=== PATIENT | male | born 1995 | race American Indian/Alaskan Native ===

== ENCOUNTER 2020-11-07 14:39 | Inpatient (IN) | payer BC, MEDICAID ==
[~2020-11-07] VITALS: Ht 180.3 cm; Wt 146.4 kg
[2020-11-07 15:58] LABS: BASOPHILS # (AUTO) 0.1 X10'3 (0-0.2); BASOPHILS % (AUTO) 1.2 % (0-1); EOSINOPHILS # (AUTO) 0.1 X10'3 (0-0.9); EOSINOPHILS % (AUTO) 0.8 % (0-6); HEMOGLOBIN 16.5 g/dl (14.0-17.9); LYMPHOCYTES # (AUTO) 2.7 X10'3 (1.1-4.8); LYMPHOCYTES % (AUTO) 27.8 % (21-51); MEAN CORPUSCULAR HEMOGLOBIN 31.8 PG (27.0-31.0); MEAN CORPUSCULAR HGB CONC 35.1 g/dL (33.0-36.5); MEAN CORPUSCULAR VOLUME 90.4 FL (78-98); MEAN PLATELET VOLUME 9.6 FL (7.4-10.4); MONOCYTES # (AUTO) 0.5 X10'3 (0-0.9); MONOCYTES % (AUTO) 4.7 % (2-12); NEUTROPHILS # (AUTO) 6.3 X10'3 (1.8-7.7); NEUTROPHILS % (AUTO) 65.5 % (42-75); PLATELET COUNT 239 X10'3 (140-440); RED CELL DISTRIBUTION WIDTH 13.4 % (11.5-14.5); WHITE BLOOD COUNT 9.6 X10'3 (4.5-11.0)
[2020-11-07] MEDS ORDERED: normal saline 1000ml 1,000 ML IV ONE ×2 (16:10→16:25)
[2020-11-07 16:22] LABS: ALBUMIN 4.5 G/DL (3.4-5.0); ALKALINE PHOSPHATASE 234 IU/L (46-116); ANION GAP 19 (8-16); BILIRUBIN,TOTAL 1.7 MG/DL (0.1-1.0); BLOOD UREA NITROGEN 15 MG/DL (7-18); BUN/CREATININE RATIO 10.3 (5.4-32.0); CALCIUM 9.4 MG/DL (8.5-10.1); CHLORIDE 92 MMOL/L (99-107); CREATININE 1.45 MG/DL (0.60-1.10); LIPASE 153 U/L (73-393); SODIUM 134 MMOL/L (135-145); TOTAL PROTEIN 9.1 G/DL (6.4-8.2); eGFR 60 ML/MIN
[2020-11-07 16:29] LABS: HEMOGLOBIN A1C > 14.0 % (4.5-6.2)
[2020-11-07 16:33] LABS: POTASSIUM 3.9 MMOL/L (3.5-5.1)
[2020-11-07 16:38] LABS: ALANINE AMINOTRANSFERASE 198 U/L (12-78); ASPARTATE AMINO TRANSFERASE 91 U/L (10-37)
[2020-11-07 16:42] LABS: GLUCOSE 487 MG/DL (70-104)
--- NOTE | 2020-11-07 17:36 | NUR ---
RT HAS DRAWN BLOOD GAS
[2020-11-07 17:37] LABS: CLARITY,URINE SLIGHTLY CLOUDY (Clear); COLOR,URINE YELLOW (Yellow); GLUCOSE, URINE >=1000 mg/dl (Neg); KETONES,URINE >=80 mg/dl (Neg); LEUKOCYTE ESTERASE ,URINE NEGATIVE (Neg); NITRITES, URINE NEGATIVE (Neg); OCCULT BLOOD,URINE LARGE (Neg); PH,URINE 5.5 (4.8-8.0); PROTEIN,URINE >=300 mg/dl (Neg); UROBILINOGEN,URINE 0.2 E.U/dL (0.2-1.0)
[2020-11-07 17:40] LABS: UA COLLECTION TYPE CLN CATCH MIDSTREAM
[2020-11-07 17:41] LABS: ABG HCO3 18.8 mmol/L (22.0-26.0); ABG PO2 (T) 72.3 mmHg (75.0-100.0); ALLEN'S TEST POSITIVE; FCOHb 0.9 % (0.0-3.9); FO2Hb 94.1 % (94-97); TOTAL HEMOGLOBIN 16.1 G/dl (14.0-18.0)
[2020-11-07] MEDS ORDERED: insulin regular, human 10 units/0.1 ml syringe SQ ONE (17:45)
[2020-11-07] MEDS ORDERED: CHOL20003 PO (17:51)
[2020-11-07] MEDS ORDERED: LEVO100T9 PO (17:54)
[2020-11-07 17:58] LABS: BACTERIA,URINE FEW /HPF (Neg); RBC,URINE 0-2 /HPF (0-2); SQUAMOUS EPITHELIAL CELL,UR FEW /LPF (FEW); WBC,URINE 0-4 /HPF (0-4)
[2020-11-07 18:03] LABS: YEAST FEW /HPF (NEGATIVE)
[2020-11-07] MEDS ORDERED: metoclopramide 5 mg/ml inj IV PRN (18:15)
[2020-11-07] MEDS ORDERED: magnesium Cl slow-release 64mg tablet PO PRN (18:15)
[2020-11-07] MEDS ORDERED: bisacodyl 10mg suppository rectal RC PRN (18:15)
[2020-11-07] MEDS ORDERED: morphine 2 MG/ML inj. syringe IV PRN ×2 (18:15)
[2020-11-07] MEDS ORDERED: sodium phosphate inj. 15 MMOL in dextrose 5%-water 250 ML IV PRN (18:15)
[2020-11-07] MEDS ORDERED: mag hydrox/Alum hydrox/simeth 30ml oral suspension PO PRN (18:15)
[2020-11-07] MEDS ORDERED: sodium phosphate inj. 30 MMOL in dextrose 5%-water 250 ML IV PRN (18:15)
[2020-11-07] MEDS ORDERED: magnesium 4gm in 100ml NS 100 ML IV PRN (18:15)
[2020-11-07] MEDS ORDERED: potassium Cl 20 mEq SR tablet PO PRN ×3 (18:15)
[2020-11-07] MEDS ORDERED: acetaminophen 650mg rectal suppository RC PRN (18:15)
[2020-11-07] MEDS ORDERED: Neutra Phos packet PO PRN (18:15)
[2020-11-07] MEDS ORDERED: potassium Cl 40MEQ/1/2NS 520ml 520 ML IV PRN ×4 (18:15)
[2020-11-07] MEDS ORDERED: HYDROcodone/acetaminophen 5mg/325mg tablet PO PRN (18:15)
[2020-11-07] MEDS ORDERED: magnesium 2GM in 50ml NS 50 ML IV PRN (18:15)
[2020-11-07] MEDS ORDERED: magnesium hydroxide 30ml (MOM) UD suspension PO PRN (18:15)
[2020-11-07] MEDS ORDERED: insulin regular, human U-100 3ml vial - multi-dose IV PRN (18:15)
[2020-11-07] MEDS ORDERED: sodium bicarbonate (8.4%) inj. 50 MEQ in dextrose 5% water 500ml 250 ML IV PRN (18:15)
[2020-11-07] MEDS ORDERED: HYDROcodone/acetaminophen 10/325mg tab PO PRN (18:15)
[2020-11-07] MEDS ORDERED: acetaminophen 325mg tablet PO PRN ×2 (18:15)
[2020-11-07] MEDS ORDERED: ondansetron/PF 4mg/2ml inj IV PRN (18:15)
[2020-11-07] MEDS ORDERED: sodium bicarbonate (8.4%) inj. 100 MEQ in dextrose 5% water 500ml 500 ML IV PRN (18:15)
[2020-11-07] MEDS ORDERED: diphenhydrAMINE 25mg capsule PO PRN (18:15)
[2020-11-07] MEDS ORDERED: CefTRIAXone 1000mg IM Kit (w/lidocaine diluent) IM STA (18:36)
[2020-11-07] MEDS ORDERED: azithromycin 250mg tablet PO ONE (18:40)
[2020-11-07] MEDS: Insulin Reg/NS 100units/100mL 100 ML IV SCH (19:12)
[2020-11-07] MEDS: normal saline 1000ml 1,000 ML IV SCH ×4 (19:15→23:03)
[2020-11-07 19:31] LABS: URINE AMPHETAMINE SCREEN NEGATIVE (Neg); URINE BARBITUATE SCREEN NEGATIVE (Neg); URINE BENZODIAZEPINES SCREEN NEGATIVE (Neg); URINE CANNABINOID SCREEN NEGATIVE (Neg); URINE COCAINE SCREEN NEGATIVE (Neg); URINE METHADONE SCREEN NEGATIVE (Neg); URINE OPIATE SCREEN NEGATIVE (Neg); URINE PHENCYCLIDINE SCREEN NEGATIVE (Neg)
[2020-11-07 19:31] LABS: ALBUMIN 4.2 G/DL (3.4-5.0); ANION GAP 20 (8-16); BLOOD UREA NITROGEN 16 MG/DL (7-18); BUN/CREATININE RATIO 11.7 (5.4-32.0); CALCIUM 9.1 MG/DL (8.5-10.1); CHLORIDE 97 MMOL/L (99-107); CREATININE 1.37 MG/DL (0.60-1.10); GLUCOSE 428 MG/DL (70-104); PHOSPHORUS 3.1 MG/DL (2.3-4.5); SODIUM 139 MMOL/L (135-145); TOTAL CARBON DIOXIDE 21.7 MMOL/L (24-32); eGFR 64 ML/MIN
[2020-11-07] MEDS: K and/or MAG REPLACEMENT MC SCH ×2 (20:00)
[2020-11-07 20:02] LABS: POTASSIUM 3.8 MMOL/L (3.5-5.1)
[2020-11-07] MEDS: heparin, porcine 5000 units/ml vial SQ SCH (20:36)
[2020-11-07] MEDS ORDERED: piperacillin/tazo 3.375gm/50ml 50 ML IV SCH (21:00)
[2020-11-07] MEDS ORDERED: levoTHYROXINE sod inj. 100mcg/5 ml vial IV ONE (21:05)
[2020-11-07 21:15] VITALS: BP 118/74
--- NOTE | 2020-11-07 22:17 | NUR ---
Patient in room PCU 3017. I have received report from Kristal RECINOS in ER and had the opportunity to ask questions and assume patient care.
[2020-11-07 22:26] LABS: ALBUMIN 4.1 G/DL (3.4-5.0); ANION GAP 16 (8-16); BLOOD UREA NITROGEN 15 MG/DL (7-18); BUN/CREATININE RATIO 10.6 (5.4-32.0); CALCIUM 8.8 MG/DL (8.5-10.1); CHLORIDE 100 MMOL/L (99-107); CREATININE 1.41 MG/DL (0.60-1.10); GLUCOSE 328 MG/DL (70-104); PHOSPHORUS 2.1 MG/DL (2.3-4.5); POTASSIUM 3.2 MMOL/L (3.5-5.1); SODIUM 140 MMOL/L (135-145); TOTAL CARBON DIOXIDE 24.1 MMOL/L (24-32); eGFR 62 ML/MIN
[2020-11-07] MEDS: piperacillin/tazo 3.375gm/50ml 50 ML IV SCH (23:03)
--- NOTE | 2020-11-07 23:31 | NUR ---
Patient came to floor at 2114. Patient stable. No distress noted. Patient on insulin drip from ER running at 10ml/hr and NS at 250 ml/hr.
[2020-11-08] MEDS: potassium Cl 20 mEq SR tablet PO PRN ×2 (00:24→08:02)
[2020-11-08] MEDS: potassium CL 20mEq in D5-1/2NS 1,000 ML IV PRN ×2 (01:25→08:03)
[2020-11-08] MEDS: normal saline 1000ml 1,000 ML IV SCH ×5 (01:36→19:41)
[2020-11-08 02:00] VITALS: BP 103/56
[2020-11-08] MEDS: Insulin Reg/NS 100units/100mL 100 ML IV SCH (02:08)
[2020-11-08 02:49] LABS: BASOPHILS # (AUTO) 0.1 X10'3 (0-0.2); EOSINOPHILS # (AUTO) 0.1 X10'3 (0-0.9); EOSINOPHILS % (AUTO) 1.2 % (0-6); HEMATOCRIT 40.2 % (42.0-52.0); HEMOGLOBIN 14.3 g/dl (14.0-17.9); LYMPHOCYTES # (AUTO) 2.9 X10'3 (1.1-4.8); LYMPHOCYTES % (AUTO) 34.1 % (21-51); MEAN CORPUSCULAR HEMOGLOBIN 31.6 PG (27.0-31.0); MEAN CORPUSCULAR HGB CONC 35.6 g/dL (33.0-36.5); MEAN CORPUSCULAR VOLUME 88.8 FL (78-98); MONOCYTES # (AUTO) 0.5 X10'3 (0-0.9); MONOCYTES % (AUTO) 5.3 % (2-12); NEUTROPHILS % (AUTO) 58.4 % (42-75); PLATELET COUNT 185 X10'3 (140-440); RED BLOOD COUNT 4.52 X10'6 (4.70-6.10); RED CELL DISTRIBUTION WIDTH 13.3 % (11.5-14.5); WHITE BLOOD COUNT 8.5 X10'3 (4.5-11.0)
[2020-11-08 03:11] LABS: ALANINE AMINOTRANSFERASE 162 U/L (12-78); ALBUMIN 3.8 G/DL (3.4-5.0); ALKALINE PHOSPHATASE 150 IU/L (46-116); ANION GAP 12 (8-16); ASPARTATE AMINO TRANSFERASE 74 U/L (10-37); BILIRUBIN,TOTAL 1.3 MG/DL (0.1-1.0); BLOOD UREA NITROGEN 15 MG/DL (7-18); BUN/CREATININE RATIO 12.4 (5.4-32.0); CALCIUM 8.3 MG/DL (8.5-10.1); CHLORIDE 105 MMOL/L (99-107); CHOL/HDL RATIO 6.8 (0.00-4.99); CHOLESTEROL 218 MG/DL (0-200); CREATININE 1.21 MG/DL (0.60-1.10); GLUCOSE 206 MG/DL (70-104); HDL CHOLESTEROL 32 MG/DL (35-60); LDL CHOLESTEROL 90 MG/DL (50-100); MAGNESIUM 1.8 MG/DL (1.5-2.4); PHOSPHORUS 2.2 MG/DL (2.3-4.5); SODIUM 142 MMOL/L (135-145); TOTAL CARBON DIOXIDE 25.4 MMOL/L (24-32); TOTAL PROTEIN 7.6 G/DL (6.4-8.2); TRIGLYCERIDES 514 MG/DL (20-135); eGFR 74 ML/MIN
[2020-11-08 03:20] LABS: POTASSIUM 2.9 MMOL/L (3.5-5.1)
--- NOTE | 2020-11-08 03:22 | NUR ---
Notified Dr. Olson of patients current blood glucose of 206 and insulin drip at 10ml/hr, ordered to decrease to 8ml/hr.
--- NOTE | 2020-11-08 03:27 | NUR ---
PAGER ID: [phone] MESSAGE: [id number] Sekou Hitchcock. Patients potassium is 2.9. He is currently on insulin drip at 8ml/hr and d51/2 NS with 20 mEq of K. His last sugar was 206 at 0300. Do you want me giving him any PO potassium or lowering insulin drip? Thanks [phone] Addendum: 11/08/20 at 0329 by Juan Carlos Tinsley RN Ordered to give 40 of k PO
[2020-11-08 03:33] LABS: HIV ANTIBODY 1&2 RAPID NON-REACTIVE (Neg)
[2020-11-08 06:00] VITALS: BP 122/71
--- NOTE | 2020-11-08 06:09 | NUR ---
Problems reprioritized. Patient report given, questions answered & plan of care reviewed with Lydia.
--- NOTE | 2020-11-08 06:16 | NUR ---
Patient in room PCU 3017. I have received report from GRISEL Rangel and had the opportunity to ask questions and assume patient care.
[2020-11-08] MEDS: heparin, porcine 5000 units/ml vial SQ SCH ×2 (07:04→19:36)
[2020-11-08] MEDS: levoTHYROXINE 100mcg tablet PO SCH (07:04)
[2020-11-08] MEDS: piperacillin/tazo 3.375gm/50ml 50 ML IV SCH ×2 (07:04→16:19)
[2020-11-08] MEDS: mupirocin 2% ointment 22GM TP SCH ×2 (07:05→19:40)
[2020-11-08] MEDS: clotrimazole topical cream 15gm tube TP SCH ×2 (07:05→19:40)
[2020-11-08] MEDS: K and/or MAG REPLACEMENT MC SCH ×4 (08:08→19:39)
--- NOTE | 2020-11-08 08:26 | NUR ---
notified. PAGER ID: [phone] MESSAGE: Re: Sekou Hitchcock. [id number]. Anion gap closed, 12 Meq/L. Co2 25. Last BG 210. Replacing K PO/IV (2.9). Insulin gtt @ 8U. Pt is hungry. Do you want a Long acting given soon and to order a lunch tray? Next bmp at 0900. thanks. Zoraida. [id number].
[2020-11-08 10:18] LABS: ALANINE AMINOTRANSFERASE 143 U/L (12-78); ALBUMIN 3.5 G/DL (3.4-5.0); ALBUMIN/GLOBULIN RATIO 0.9 (1.1-1.5); ALKALINE PHOSPHATASE 133 IU/L (46-116); ANION GAP 13 (8-16); ASPARTATE AMINO TRANSFERASE 77 U/L (10-37); BILIRUBIN,TOTAL 1.2 MG/DL (0.1-1.0); BLOOD UREA NITROGEN 13 MG/DL (7-18); BUN/CREATININE RATIO 10.8 (5.4-32.0); CALCIUM 7.9 MG/DL (8.5-10.1); CHLORIDE 104 MMOL/L (99-107); GLUCOSE 168 MG/DL (70-104); POTASSIUM 3.2 MMOL/L (3.5-5.1); SODIUM 141 MMOL/L (135-145); TOTAL CARBON DIOXIDE 24.5 MMOL/L (24-32); TOTAL PROTEIN 7.4 G/DL (6.4-8.2); eGFR 74 ML/MIN
[2020-11-08] MEDS ORDERED: dextrose 50%-water 50ml dispensing syringe IV PRN ×2 (10:55)
[2020-11-08] MEDS ORDERED: dextrose ORAL solution 15 GM/59 ML bottle PO PRN ×2 (10:55)
[2020-11-08] MEDS ORDERED: MESSAGE TO PHARMACY PO ONE (10:55)
[2020-11-08] MEDS ORDERED: glucagon, human recombinant 1mg kit SUBCUT PRN (10:55)
[2020-11-08 11:00] VITALS: BP 136/77
[2020-11-08] MEDS: insulin Lispro (HumaLOG) vial - multi-dose SQ SCH ×3 (13:04→21:58)
[2020-11-08 14:45] LABS: ALANINE AMINOTRANSFERASE 140 U/L (12-78); ALBUMIN 3.5 G/DL (3.4-5.0); ALBUMIN/GLOBULIN RATIO 0.9 (1.1-1.5); ALKALINE PHOSPHATASE 130 IU/L (46-116); ANION GAP 10 (8-16); ASPARTATE AMINO TRANSFERASE 73 U/L (10-37); BILIRUBIN,TOTAL 1.4 MG/DL (0.1-1.0); BLOOD UREA NITROGEN 15 MG/DL (7-18); BUN/CREATININE RATIO 9.6 (5.4-32.0); CHLORIDE 105 MMOL/L (99-107); CREATININE 1.56 MG/DL (0.60-1.10); GLUCOSE 320 MG/DL (70-104); POTASSIUM 3.7 MMOL/L (3.5-5.1); SODIUM 140 MMOL/L (135-145); TOTAL CARBON DIOXIDE 25.3 MMOL/L (24-32); TOTAL PROTEIN 7.2 G/DL (6.4-8.2); eGFR 55 ML/MIN
[2020-11-08 14:53] LABS: CALCIUM 7.8 MG/DL (8.5-10.1)
[2020-11-08 15:00] VITALS: BP 128/63
[2020-11-08] MEDS ORDERED: cholecalciferol (vitamin D3) 1,000 unit (25mcg) tablet PO SCH (17:00)
[2020-11-08 18:00] VITALS: BP 111/68
--- NOTE | 2020-11-08 18:26 | NUR ---
DM consult: Pt admit with new onset diabetes with an A1c of greater than 14% with DKA. Attempted visit with pt at bedside however pt sleeping and did not wake with verbal cues. Written DM education with RD contact information left at patient's bedside. Will attempt verbal education at another time. Noted that pt with elevated lipid panel with TG 514 mg/dL and CHOL 218 mg/dL, pt would benefit from heart healthy nutrition therapy education. Pt on a CHO controlled diet documented with 100% PO intake first meal. [facility] 11/07. Will continue to follow closely. Recommendations: 1) Continue CHO controlled diet; consider addition of heart healthy diet given TG 514 mg/dL and CHOL 218 mg/dL 2) Monitor need for additional protein for satiety 3) Bowel care per rx 4) Scaled weights per rx 5) DM and heart healthy educations; A1c greater than 14.0%, TG 514 mg/dL and CHOL 218 mg/dL Addendum: 11/08/20 at [address] Amended: Links added.
--- NOTE | 2020-11-08 18:30 | NUR ---
Problems reprioritized. Patient report given, questions answered & plan of care reviewed with GRISEL Portillo.
--- NOTE | 2020-11-08 18:30 | NUR ---
Student documentation: I have reviewed and agree with all interventions, assessments performed and documented by GRISEL Jerome. Preceptee medication Administration: For this medication-pass time frame, all medication were reviewed, dispensed, administered and documented per hospital policy by GRISEL Jerome.
[2020-11-08] MEDS: lactobacillus rhamnosus 10,000 MMU CELLS/CAPSULE PO SCH (19:35)
[2020-11-08] MEDS ORDERED: insulin glargine (Lantus) pen - multi-dose SQ SCH (21:00)
[2020-11-08 22:00] VITALS: BP 106/61
[2020-11-09] MEDS: piperacillin/tazo 3.375gm/50ml 50 ML IV SCH ×2 (00:40→08:14)
[2020-11-09 02:00] VITALS: BP 121/65
[2020-11-09] MEDS: normal saline 1000ml 1,000 ML IV SCH (05:38)
[2020-11-09 06:00] VITALS: BP 114/63
--- NOTE | 2020-11-09 06:17 | NUR ---
Problems reprioritized. Patient report given, questions answered & plan of care reviewed with Zoraida RECINOS.
--- NOTE | 2020-11-09 06:25 | NUR ---
Patient in room PCU 3017. I have received report from GRISEL Rangel and had the opportunity to ask questions and assume patient care.
[2020-11-09 07:29] LABS: BASOPHILS # (AUTO) 0.1 X10'3 (0-0.2); BASOPHILS % (AUTO) 0.9 % (0-1); EOSINOPHILS # (AUTO) 0.1 X10'3 (0-0.9); EOSINOPHILS % (AUTO) 1.9 % (0-6); HEMATOCRIT 40.8 % (42.0-52.0); HEMOGLOBIN 14.2 g/dl (14.0-17.9); LYMPHOCYTES # (AUTO) 2.5 X10'3 (1.1-4.8); LYMPHOCYTES % (AUTO) 37.4 % (21-51); MEAN CORPUSCULAR HEMOGLOBIN 31.6 PG (27.0-31.0); MEAN CORPUSCULAR HGB CONC 34.8 g/dL (33.0-36.5); MEAN CORPUSCULAR VOLUME 90.8 FL (78-98); MEAN PLATELET VOLUME 9.1 FL (7.4-10.4); MONOCYTES # (AUTO) 0.4 X10'3 (0-0.9); MONOCYTES % (AUTO) 5.8 % (2-12); NEUTROPHILS # (AUTO) 3.6 X10'3 (1.8-7.7); PLATELET COUNT 166 X10'3 (140-440); RED BLOOD COUNT 4.49 X10'6 (4.70-6.10); RED CELL DISTRIBUTION WIDTH 14.1 % (11.5-14.5); WHITE BLOOD COUNT 6.8 X10'3 (4.5-11.0)
[2020-11-09] MEDS: K and/or MAG REPLACEMENT MC SCH ×2 (08:00→09:00)
[2020-11-09] MEDS: lactobacillus rhamnosus 10,000 MMU CELLS/CAPSULE PO SCH (08:14)
[2020-11-09] MEDS: levoTHYROXINE 100mcg tablet PO SCH (08:14)
[2020-11-09] MEDS: heparin, porcine 5000 units/ml vial SQ SCH (08:15)
[2020-11-09] MEDS: clotrimazole topical cream 15gm tube TP SCH (08:15)
[2020-11-09] MEDS: mupirocin 2% ointment 22GM TP SCH (08:15)
[2020-11-09 08:18] LABS: ALANINE AMINOTRANSFERASE 125 U/L (12-78); ALBUMIN 3.3 G/DL (3.4-5.0); ALBUMIN/GLOBULIN RATIO 0.9 (1.1-1.5); ALKALINE PHOSPHATASE 119 IU/L (46-116); ANION GAP 11 (8-16); ASPARTATE AMINO TRANSFERASE 62 U/L (10-37); BILIRUBIN,TOTAL 1.3 MG/DL (0.1-1.0); BLOOD UREA NITROGEN 13 MG/DL (7-18); BUN/CREATININE RATIO 9.8 (5.4-32.0); CHLORIDE 104 MMOL/L (99-107); CREATININE 1.33 MG/DL (0.60-1.10); GLUCOSE 348 MG/DL (70-104); PHOSPHORUS 2.8 MG/DL (2.3-4.5); POTASSIUM 3.9 MMOL/L (3.5-5.1); SODIUM 140 MMOL/L (135-145); TOTAL CARBON DIOXIDE 24.6 MMOL/L (24-32); eGFR 66 ML/MIN
[2020-11-09] MEDS: insulin Lispro (HumaLOG) vial - multi-dose SQ SCH ×2 (09:09→13:49)
[2020-11-09 11:00] VITALS: BP_SYST 113; BP_SYST 136; BP_DIAS 75; BP_DIAS 77
[2020-11-09 11:14] LABS: HBSAG SCREEN Negative (Negative); HEP A AB, IGM Negative (Negative); HEPATITIS C ANTIBODY <0.1 s/co ratio (0.0-0.9)
[2020-11-09] MEDS ORDERED: CLOT15CR35 TP (11:40)
[2020-11-09] MEDS ORDERED: METF-950 PO (11:40)
[2020-11-09] MEDS ORDERED: LANTUS SQ (11:40)
[2020-11-09] MEDS ORDERED: INSU100V11 SQ (11:40)
[2020-11-09] MEDS ORDERED: ASPI-611 PO (11:40)
[2020-11-09] MEDS ORDERED: MUPI22OI30 TP (11:40)
[2020-11-09] MEDS ORDERED: LACT1CAP26 PO (11:40)
[2020-11-09] MEDS ORDERED: LISI-790 PO (11:40)
[2020-11-09] MEDS ORDERED: AMOX-419 PO (11:40)
--- NOTE | 2020-11-09 14:05 | NUR ---
geographic information systems manager paged about patient's discharge, including supplies. Awaiting response.
--- NOTE | 2020-11-09 15:08 | NUR ---
F/u for DM consult: Pt seen at bedside with grandmother present provided with extensive verbal DM education and heart healthy nutrition therapy education. Pt and grandmother very interactive with education. Pt reports multiple family members with diabetes and reports great grandmother is a personal development educator. Noted that pt goes to [facility], pt encouraged to inquire about seeing CDEs at [facility] as well as to f/u with PCP and inquire about referral for healthcare interpreter. All questions were answered at this time. RD contact information provided and pt encouraged to reach out for further questions. Written materials provided. Will remain available. Addendum: 11/09/20 at [address] Amended: Links added.
--- NOTE | 2020-11-09 15:10 | NUR ---
Patient stable for discharge per md orders. Chemist Assistant gave diabetes education prior to discharge. Educated patient and grandmother about signs of hypo/hyperglycemia, how to give insulin shots, how to use glucometer/lancets. Discussed with patient the need to administer insulin daily prior to meals and how long acting insulin works. utilities manager notified and received doctors order for glucometer/testing strips/lancets. dredge captain discontinued. Both IV's taken out with cannula intact. Patient was given strict return precautions. Diabetes survival skills gone over in detail. Patient belongings gathered. Patient witnessed ambulating to lobby with grandmother off premises. Addendum: 11/09/20 at 1616 by Zoraida Narvaez RN Medications called into [facility]. Addendum: 11/09/20 at 1738 by Zoraida Narvaez RN Medications now sent to [facility] on [address], called into by Alessia Zuniga RN.
== END 2020-11-09 15:05 | disposition home or self-care (01) | DRG 638 ==
LOC: ER 14:40 → ED HOLD 18:11 → PCU 3S 21:25
PROVIDERS: ADMIT Family Medicine; ATTEND Family Medicine
DX: E11.10 Type 2 diabetes mellitus with ketoacidosis without coma (principal); Z68.42 Body mass index [BMI] 45.0-49.9, adult; N17.9 Acute kidney failure, unspecified; E03.9 Hypothyroidism, unspecified; E66.01 Morbid (severe) obesity due to excess calories; E86.0 Dehydration; E87.6 Hypokalemia; N47.6 Balanoposthitis; Z91.19 Patient's noncompliance with other medical treatment and regimen; Z79.899 Other long term (current) drug therapy
CPT/HCPCS: 36415; 36600; 71045; 76700; 80048; 80053; 80061; 80305; 81001; 82009; 82803; 82948; 83036; 83605; 83690; 83735; 84100; 84145; 84443; 85018; 85025; 86703; 86705; 86706; 86709; 86803; 87040; 87081; 87340; 87491; 93306; 96361; 99285; G0378; J0696; J1644; J1815; J2543; J3480; J7030

== ENCOUNTER 2023-06-27 11:54 | Inpatient (IN) | payer MEDICAID, OTHER ==
[~2023-06-27] VITALS: Ht 180.3 cm; Wt 132.5 kg
[~2023-06-27 11:54] MED LIST: CHOL20003 PO; CLOT15CR35 TP; INSU100V11 SQ; LACT1CAP26 PO; LEVO100T9 PO; LISI5TAB22 PO; MUPI22OI30 TP
[2023-06-27 13:33] LABS: ALANINE AMINOTRANSFERASE 65 U/L (12-78); ALBUMIN 3.8 G/DL (3.4-5.0); ALBUMIN/GLOBULIN RATIO 0.8 (1.1-1.5); ALKALINE PHOSPHATASE 129 IU/L (46-116); ANION GAP 5 (8-16); ASPARTATE AMINO TRANSFERASE 28 U/L (10-37); BILIRUBIN,TOTAL 1.8 MG/DL (0.1-1.0); BLOOD UREA NITROGEN 15 MG/DL (7-18); BUN/CREATININE RATIO 15.8 (10.0-20.0); CALCIUM 9.1 MG/DL (8.5-10.1); CHLORIDE 98 MMOL/L (99-107); CREATININE 0.95 MG/DL (0.60-1.10); GLUCOSE 295 MG/DL (70-104); POTASSIUM 3.4 MMOL/L (3.5-5.1); SODIUM 132 MMOL/L (135-145); TOTAL CARBON DIOXIDE 28.9 MMOL/L (24-32); TOTAL PROTEIN 8.7 G/DL (6.4-8.2); eCRCL 124 ML/MIN; eGFR > 90 ML/MIN
[2023-06-27 13:42] LABS: BASOPHILS % (AUTO) 0.5 % (0-1); EOSINOPHILS % (AUTO) 0.4 % (0-6); HEMATOCRIT 43.9 % (42.0-52.0); HEMOGLOBIN 15.3 g/dl (14.0-17.9); LYMPHOCYTES # (AUTO) 1.3 X10'3 (1.1-4.8); LYMPHOCYTES % (AUTO) 15.7 % (21-51); MEAN CORPUSCULAR HEMOGLOBIN 30.1 PG (27.0-31.0); MEAN CORPUSCULAR HGB CONC 34.8 g/dL (33.0-36.5); MEAN CORPUSCULAR VOLUME 86.5 FL (78-98); MEAN PLATELET VOLUME 8.7 FL (7.4-10.4); MONOCYTES # (AUTO) 0.5 X10'3 (0-0.9); MONOCYTES % (AUTO) 6.4 % (2-12); NEUTROPHILS # (AUTO) 6.5 X10'3 (1.8-7.7); PLATELET COUNT 246 X10'3 (140-440); RED BLOOD COUNT 5.08 X10'6 (4.70-6.10); RED CELL DISTRIBUTION WIDTH 13.2 % (11.5-14.5); WHITE BLOOD COUNT 8.5 X10'3 (4.5-11.0)
[2023-06-27 16:44] LABS: BILIRUBIN,URINE SMALL (Neg); CLARITY,URINE SLIGHTLY CLOUDY (Clear); GLUCOSE, URINE 500 mg/dl (Neg); KETONES,URINE 15 mg/dl (Neg); LEUKOCYTE ESTERASE ,URINE NEGATIVE (Neg); NITRITES, URINE NEGATIVE (Neg); OCCULT BLOOD,URINE NEGATIVE (Neg); PROTEIN,URINE 100 mg/dl (Neg); UROBILINOGEN,URINE 0.2 E.U/dL (0.2-1.0)
[2023-06-27] MEDS ORDERED: HYDROmorphone 1 mg/ml syringe IV ONE (16:45)
[2023-06-27] MEDS: normal saline 1000ml 1,000 ML IV SCH ×2 (16:45→20:45)
[2023-06-27] MEDS ORDERED: ondansetron/PF 4mg/2ml inj IV ONE (16:45)
[2023-06-27 16:49] LABS: COLOR,URINE DARK YELLOW (Yellow); UA COLLECTION TYPE VOIDED
[2023-06-27 16:52] LABS: BACTERIA,URINE FEW /HPF (Neg); MUCUS STRANDS FEW /LPF (Neg); RBC,URINE 0-2 /HPF (0-2); SQUAMOUS EPITHELIAL CELL,UR FEW /LPF (FEW); WBC,URINE 0-4 /HPF (0-4)
[2023-06-27] MEDS ORDERED: iohexol 300mg/ml 100ml inj. ONE (20:57)
--- NOTE | 2023-06-27 21:44 | NUR ---
NOTIFIED PT REFUSED MEDICATION
[2023-06-27] MEDS ORDERED: piperacillin/tazo 3.375gm/50ml 50 ML IV ONE (22:55)
[2023-06-27] MEDS ORDERED: magnesium 4gm in 100ml NS 100 ML IV PRN (23:00)
[2023-06-27] MEDS ORDERED: mag hydrox/Alum hydrox/simeth 30ml oral suspension PO PRN (23:00)
[2023-06-27] MEDS ORDERED: potassium Cl 40MEQ/1/2NS 520ml 520 ML IV PRN (23:00)
[2023-06-27] MEDS ORDERED: HYDROmorphone/PF 0.2 MG/ML SYRINGE IV PRN (23:00)
[2023-06-27] MEDS ORDERED: potassium Cl 20 mEq SR tablet PO PRN (23:00)
[2023-06-27] MEDS ORDERED: HYDROcodone/acetaminophen 10/325mg tab PO PRN (23:00)
[2023-06-27] MEDS ORDERED: HYDROcodone/acetaminophen 5mg/325mg tablet PO PRN (23:00)
[2023-06-27] MEDS ORDERED: glucagon, human recombinant 1mg kit SUBCUT PRN (23:00)
[2023-06-27] MEDS ORDERED: magnesium hydroxide 30ml (MOM) UD suspension PO PRN (23:00)
[2023-06-27] MEDS ORDERED: MESSAGE TO PHARMACY PO ONE (23:00)
[2023-06-27] MEDS ORDERED: DEXTROSE 15 GM of carb/4 tabs (each vial/BOTTLE has 4 tablets) PO PRN ×2 (23:00)
[2023-06-27] MEDS ORDERED: ondansetron/PF 4mg/2ml inj IV PRN (23:00)
[2023-06-27] MEDS ORDERED: acetaminophen 325mg tablet PO PRN ×2 (23:00)
[2023-06-27] MEDS ORDERED: magnesium 2GM in 50ml NS 50 ML IV PRN (23:00)
[2023-06-27] MEDS ORDERED: dextrose 50%-water 50ml dispensing syringe IV PRN ×2 (23:00)
[2023-06-27] MEDS ORDERED: VANCOMYCIN 1,500MG in normal saline IV soln 300 ML IV ONE (23:05)
[2023-06-27] MEDS ORDERED: HYDROmorphone 1 mg/ml syringe IV PRN (23:15)
[2023-06-27] MEDS: potassium Cl 20mEq in NS 1,000 ML IV SCH (23:45)
[2023-06-28] MEDS: normal saline 1000ml 1,000 ML IV SCH ×2 (00:45→04:47)
[2023-06-28 02:43] LABS: BASOPHILS % (AUTO) 0.5 % (0-1); EOSINOPHILS % (AUTO) 0.2 % (0-6); HEMATOCRIT 38.7 % (42.0-52.0); HEMOGLOBIN 13.7 g/dl (14.0-17.9); LYMPHOCYTES # (AUTO) 1.6 X10'3 (1.1-4.8); LYMPHOCYTES % (AUTO) 17.6 % (21-51); MEAN CORPUSCULAR HEMOGLOBIN 30.5 PG (27.0-31.0); MEAN CORPUSCULAR HGB CONC 35.4 g/dL (33.0-36.5); MEAN CORPUSCULAR VOLUME 86.2 FL (78-98); MEAN PLATELET VOLUME 8.1 FL (7.4-10.4); MONOCYTES # (AUTO) 0.6 X10'3 (0-0.9); MONOCYTES % (AUTO) 7.3 % (2-12); NEUTROPHILS # (AUTO) 6.6 X10'3 (1.8-7.7); NEUTROPHILS % (AUTO) 74.4 % (42-75); PLATELET COUNT 200 X10'3 (140-440); RED BLOOD COUNT 4.49 X10'6 (4.70-6.10); RED CELL DISTRIBUTION WIDTH 13.6 % (11.5-14.5); WHITE BLOOD COUNT 8.8 X10'3 (4.5-11.0)
[2023-06-28 03:04] LABS: ALANINE AMINOTRANSFERASE 58 U/L (12-78); ALBUMIN 3.3 G/DL (3.4-5.0); ALBUMIN/GLOBULIN RATIO 0.8 (1.1-1.5); ALKALINE PHOSPHATASE 98 IU/L (46-116); ANION GAP 7 (8-16); ASPARTATE AMINO TRANSFERASE 39 U/L (10-37); BILIRUBIN,TOTAL 1.7 MG/DL (0.1-1.0); BLOOD UREA NITROGEN 13 MG/DL (7-18); BUN/CREATININE RATIO 13.8 (10.0-20.0); CALCIUM 8.3 MG/DL (8.5-10.1); CHLORIDE 100 MMOL/L (99-107); CREATININE 0.94 MG/DL (0.60-1.10); GLUCOSE 242 MG/DL (70-104); MAGNESIUM 1.6 MG/DL (1.5-2.4); POTASSIUM 3.4 MMOL/L (3.5-5.1); SODIUM 135 MMOL/L (135-145); TOTAL CARBON DIOXIDE 28.5 MMOL/L (24-32); TOTAL PROTEIN 7.6 G/DL (6.4-8.2); eCRCL 126 ML/MIN; eGFR > 90 ML/MIN
[2023-06-28 03:09] LABS: HEMOGLOBIN A1C 11.6 % (4.5-6.2)
[2023-06-28] MEDS: piperacillin/tazo 4.5gm/100ml 100 ML IV SCH ×3 (06:47→22:27)
[2023-06-28] MEDS ORDERED: vancomycin/NS 1 GM ADD-VANTAGE 250 ML IV SCH (08:00)
[2023-06-28] MEDS: docusate sod 100mg capsule PO SCH ×2 (08:00→20:00)
--- NOTE | 2023-06-28 08:05 | NUR ---
Called to give report to Luci, she was busy and would call me back.
--- NOTE | 2023-06-28 08:45 | NUR ---
Called 2nd time to give report. Again will phone back.
--- NOTE | 2023-06-28 09:08 | NUR ---
pt family memeber requesting when he is having surgery nothing scheduled at this time
--- NOTE | 2023-06-28 09:11 | NUR ---
pt okayd information with nicole
[2023-06-28 10:00] VITALS: BP 105/65; PULSE 85; RESP 16; TEMP 98.6; O2SAT 92
[2023-06-28 10:41] VITALS: RESP 13; O2SAT 97
[2023-06-28] MEDS: K and/or MAG REPLACEMENT MC SCH ×2 (11:45→20:00)
[2023-06-28] MEDS: potassium Cl 20 mEq SR tablet PO PRN ×3 (11:45→22:01)
[2023-06-28] MEDS: potassium Cl 20mEq in NS 1,000 ML IV SCH ×2 (11:58→19:00)
[2023-06-28] MEDS: insulin Lispro (HumaLOG) vial - multi-dose SQ SCH ×2 (13:31→20:10)
--- NOTE | 2023-06-28 14:29 | NUR ---
PAGER ID: [phone] MESSAGE: Sekou Hitchcock 2420d Has orders I need to clarify please call [phone] [phone]
[2023-06-28] MEDS ORDERED: LEVO150T8 (14:31)
--- NOTE | 2023-06-28 14:33 | NUR ---
PAGER ID: [phone] MESSAGE: Sekou Hitchcock [phone] Please address pt's med rec. as well. Blanche [phone]
[2023-06-28 18:00] VITALS: BP 135/73; PULSE 86; RESP 16; TEMP 97.5; O2SAT 96
--- NOTE | 2023-06-28 19:06 | NUR ---
Gave report to Yoli RECINOS.
--- NOTE | 2023-06-28 19:10 | NUR ---
Patient in room ORTHO 4022. I have received report from GRISEL Mancia and had the opportunity to ask questions and assume patient care.
[2023-06-28] MEDS: enoxaparin 40mg/0.4ml syringe SQ SCH (20:07)
[2023-06-28] MEDS: vancomycin/NS 1 GM ADD-VANTAGE 250 ML IV SCH (20:07)
[2023-06-28 20:10] VITALS: RESP 16; O2SAT 96
[2023-06-28 22:00] VITALS: BP 116/69; PULSE 82; RESP 16; TEMP 97.8; O2SAT 97
[2023-06-28] MEDS: insulin glargine (Lantus) pen - multi-dose SQ SCH (22:57)
[2023-06-29] VITALS (7 sets, daily range): BP systolic 96–117; BP diastolic 29–77; PULSE 76–93; RESP 14–18; TEMP 97.8–98.8; O2SAT 96–98
[2023-06-29] MEDS: potassium Cl 20mEq in NS 1,000 ML IV SCH ×2 (04:04→18:15)
[2023-06-29] MEDS: vancomycin/NS 1 GM ADD-VANTAGE 250 ML IV SCH ×2 (04:04→12:09)
[2023-06-29] MEDS: piperacillin/tazo 4.5gm/100ml 100 ML IV SCH ×3 (05:39→23:05)
--- NOTE | 2023-06-29 06:15 | NUR ---
Report received from marely RECINOS, care plan reviewed, questions answered.
--- NOTE | 2023-06-29 06:46 | NUR ---
Problems reprioritized. Patient report given, questions answered & plan of care reviewed with GRISEL Cadena.
[2023-06-29] MEDS: docusate sod 100mg capsule PO SCH ×2 (08:00→20:00)
[2023-06-29] MEDS: K and/or MAG REPLACEMENT MC SCH ×2 (08:00→20:20)
--- NOTE | 2023-06-29 08:00 | NUR ---
pt declined morning vitals
[2023-06-29 08:37] LABS: BASOPHILS % (AUTO) 0.6 % (0-1); EOSINOPHILS # (AUTO) 0.1 X10'3 (0-0.9); EOSINOPHILS % (AUTO) 1.6 % (0-6); HEMOGLOBIN 14.3 g/dl (14.0-17.9); LYMPHOCYTES # (AUTO) 1.5 X10'3 (1.1-4.8); LYMPHOCYTES % (AUTO) 21.9 % (21-51); MEAN CORPUSCULAR HEMOGLOBIN 30.4 PG (27.0-31.0); MEAN CORPUSCULAR HGB CONC 34.8 g/dL (33.0-36.5); MEAN CORPUSCULAR VOLUME 87.3 FL (78-98); MEAN PLATELET VOLUME 8.3 FL (7.4-10.4); MONOCYTES # (AUTO) 0.5 X10'3 (0-0.9); MONOCYTES % (AUTO) 7.8 % (2-12); NEUTROPHILS # (AUTO) 4.6 X10'3 (1.8-7.7); NEUTROPHILS % (AUTO) 68.1 % (42-75); PLATELET COUNT 203 X10'3 (140-440); RED CELL DISTRIBUTION WIDTH 13.6 % (11.5-14.5); WHITE BLOOD COUNT 6.8 X10'3 (4.5-11.0)
[2023-06-29 08:56] LABS: ALBUMIN 3.2 G/DL (3.4-5.0); ANION GAP 4 (8-16); BILIRUBIN,TOTAL 1.6 MG/DL (0.1-1.0); BLOOD UREA NITROGEN 7 MG/DL (7-18); BUN/CREATININE RATIO 7.2 (10.0-20.0); CALCIUM 8.4 MG/DL (8.5-10.1); CHLORIDE 102 MMOL/L (99-107); CREATININE 0.97 MG/DL (0.60-1.10); GLUCOSE 216 MG/DL (70-104); MAGNESIUM 1.8 MG/DL (1.5-2.4); POTASSIUM 4.1 MMOL/L (3.5-5.1); SODIUM 137 MMOL/L (135-145); TOTAL CARBON DIOXIDE 30.7 MMOL/L (24-32); TOTAL PROTEIN 7.8 G/DL (6.4-8.2); eCRCL 122 ML/MIN; eGFR > 90 ML/MIN
[2023-06-29 08:57] LABS: ALANINE AMINOTRANSFERASE 60 U/L (12-78); ALBUMIN/GLOBULIN RATIO 0.7 (1.1-1.5); ALKALINE PHOSPHATASE 101 IU/L (46-116); ASPARTATE AMINO TRANSFERASE 32 U/L (10-37)
[2023-06-29] MEDS: insulin Lispro (HumaLOG) vial - multi-dose SQ SCH ×3 (09:29→19:30)
[2023-06-29] MEDS ORDERED: VANCOMYCIN LEVEL IV ONE (11:30)
--- NOTE | 2023-06-29 13:55 | NUR ---
Diabetes and malnutrition consult: Pt presents with an A1c of 11.6% which is down from >14% on 11/07/20 per EMR. Pt seen at bedside for written/verbal diabetes nutrition education. Pt states he was working on his diabetes management with a dietitian at the [facility] and was able to get his A1c down to 5.5%. However due to life circumstance he hasn't followed up with the outpatient dietitian, stopped working out, and stopped making healthy food choices. Provided written/verbal diabetes nutrition education with RD contact information. Encouraged pt to reach out for any additional nutrition questions or concerns. Addendum: 06/29/23 at [address] Amended: Links added. Addendum: 06/29/23 at [address] Diabetes and malnutrition consult: Pt presents with an A1c of 11.6% which is down from >14% on 11/07/20 per EMR. Pt seen at bedside for written/verbal diabetes nutrition education. Pt states he was working on his diabetes management with a dietitian at the [facility] and was able to get his A1c down to 5.5%. However due to life circumstance he hasn't followed up with the outpatient dietitian, stopped working out, and stopped making healthy food choices. Provided written/verbal diabetes nutrition education with RD contact information. Encouraged pt to reach out for any additional nutrition questions or concerns. Per RN malnutrition screen pt reports 2-13 pound wt loss and decreased in PO intake. Pt is unsure of recent wt or weight changes thus unable to indicate if wt loss has occurred. Pt is currently on a carbohydrate controlled diet with 75-100% intake for first two meals. Pt does not have edema nor reduced muscle strength. Pt physically appeared well developed well nourished with no signs of fat or muscle loss at this time. Pt lacks a minimum of two criteria for malnutrition at this time Will continue to monitor.
[2023-06-29] MEDS ORDERED: VANCOMYCIN 1,500MG in NS 300ml IVPB IV SCH ×2 (14:00→20:00)
[2023-06-29 16:24] LABS: HBSAG SCREEN Negative (Negative); HEP B CORE AB, IGM Negative (Negative); HEP B CORE AB, TOT Negative (Negative)
--- NOTE | 2023-06-29 17:44 | NUR ---
Page Sent PAGER ID: [phone] MESSAGE: [id number] maryuri osborne pt groin area is oozing , i applied some gauze it was like red purulent drainage from small opening. anabel [phone]
--- NOTE | 2023-06-29 18:29 | NUR ---
Page Sent PAGER ID: [phone] MESSAGE: MESSAGE: [id number] b dylon, second page pt groin area is oozing , i applied some gauze it was like red purulent drainage from small opening. anabel [phone]
--- NOTE | 2023-06-29 18:40 | NUR ---
Patient in room ORTHO 4022. I have received report from GRISEL Cadena and had the opportunity to ask questions and assume patient care.
--- NOTE | 2023-06-29 18:43 | NUR ---
Problems reprioritized. Patient report given, questions answered & plan of care reviewed with marely rhodes.
[2023-06-29] MEDS: enoxaparin 40mg/0.4ml syringe SQ SCH (20:18)
[2023-06-29] MEDS: insulin glargine (Lantus) pen - multi-dose SQ SCH (22:09)
--- NOTE | 2023-06-29 22:22 | NUR ---
double check of insulin done. meds given with Selam MÉNDEZ [facility].
[2023-06-30] MEDS: potassium Cl 20mEq in NS 1,000 ML IV SCH ×2 (01:00→11:00)
[2023-06-30] MEDS: piperacillin/tazo 4.5gm/100ml 100 ML IV SCH ×2 (05:35→14:00)
[2023-06-30 06:00] VITALS: BP 105/71; PULSE 72; RESP 18; TEMP 98; O2SAT 96
--- NOTE | 2023-06-30 06:25 | NUR ---
Problems reprioritized. Patient report given, questions answered & plan of care reviewed with GRISEL Cadena.
--- NOTE | 2023-06-30 06:55 | NUR ---
Patient in room ORTHO 4022. I have received report from MARYANA RECINOS and had the opportunity to ask questions and assume patient care.
[2023-06-30 07:07] LABS: BASOPHILS # (AUTO) 0.1 X10'3 (0-0.2); BASOPHILS % (AUTO) 1.9 % (0-1); EOSINOPHILS # (AUTO) 0.6 X10'3 (0-0.9); EOSINOPHILS % (AUTO) 8.6 % (0-6); HEMATOCRIT 42.1 % (42.0-52.0); HEMOGLOBIN 14.6 g/dl (14.0-17.9); LYMPHOCYTES # (AUTO) 1.1 X10'3 (1.1-4.8); LYMPHOCYTES % (AUTO) 16.8 % (21-51); MEAN CORPUSCULAR HEMOGLOBIN 30.2 PG (27.0-31.0); MEAN CORPUSCULAR HGB CONC 34.8 g/dL (33.0-36.5); MEAN CORPUSCULAR VOLUME 86.8 FL (78-98); MONOCYTES # (AUTO) 0.4 X10'3 (0-0.9); MONOCYTES % (AUTO) 6.3 % (2-12); NEUTROPHILS # (AUTO) 4.5 X10'3 (1.8-7.7); NEUTROPHILS % (AUTO) 66.4 % (42-75); PLATELET COUNT 210 X10'3 (140-440); RED BLOOD COUNT 4.85 X10'6 (4.70-6.10); RED CELL DISTRIBUTION WIDTH 13.7 % (11.5-14.5); WHITE BLOOD COUNT 6.8 X10'3 (4.5-11.0)
[2023-06-30 07:17] LABS: ALANINE AMINOTRANSFERASE 61 U/L (12-78); ALBUMIN 3.4 G/DL (3.4-5.0); ALBUMIN/GLOBULIN RATIO 0.7 (1.1-1.5); ALKALINE PHOSPHATASE 105 IU/L (46-116); ANION GAP 6 (8-16); ASPARTATE AMINO TRANSFERASE 30 U/L (10-37); BILIRUBIN,TOTAL 1.7 MG/DL (0.1-1.0); BLOOD UREA NITROGEN 12 MG/DL (7-18); BUN/CREATININE RATIO 11.5 (10.0-20.0); CALCIUM 9.1 MG/DL (8.5-10.1); CHLORIDE 99 MMOL/L (99-107); CREATININE 1.04 MG/DL (0.60-1.10); GLUCOSE 195 MG/DL (70-104); MAGNESIUM 1.9 MG/DL (1.5-2.4); POTASSIUM 3.7 MMOL/L (3.5-5.1); SODIUM 135 MMOL/L (135-145); TOTAL CARBON DIOXIDE 30.1 MMOL/L (24-32); TOTAL PROTEIN 8.4 G/DL (6.4-8.2); eCRCL 114 ML/MIN; eGFR 86 ML/MIN
[2023-06-30] MEDS: docusate sod 100mg capsule PO SCH (08:00)
[2023-06-30] MEDS: K and/or MAG REPLACEMENT MC SCH (08:00)
[2023-06-30 08:05] LABS: HIV ANTIBODY 1&2 RAPID NON-REACTIVE (Neg)
[2023-06-30] MEDS: insulin Lispro (HumaLOG) vial - multi-dose SQ SCH (08:30)
--- NOTE | 2023-06-30 08:44 | NUR ---
DM consult: Patient's A1c has already been addressed, please see prior RD note. Addendum: 06/30/23 at [address] Amended: Links added.
[2023-06-30 10:00] VITALS: BP 116/73; PULSE 78; RESP 16; TEMP 97.5; O2SAT 94
--- NOTE | 2023-06-30 11:57 | NUR ---
MD AWARE OF PT ABSCESS DRAINING, WOUND CARE CONSULT IN AND HE DOES WANT BLOOD CULTURES. PT CAN BE SL.
--- NOTE | 2023-06-30 12:30 | NUR ---
pt did not want BS check for lunch time, stated he is going home and will do it there.
[2023-06-30] MEDS ORDERED: LINE600T11 CORPAK (12:54)
[2023-06-30] MEDS ORDERED: LEVO750T68 PO (12:54)
[2023-06-30] MEDS ORDERED: VANCOMYCIN LEVEL IV ONE (13:30)
--- NOTE | 2023-06-30 15:46 | NUR ---
pt stable for dc, iv dc cannula is intact, all belongings taken and dc info gone over, pt was educated on importance of taking abx and to follow up with his primary. pt was walked down and left in a private vehicle.
[2023-07-01] MEDS ORDERED: levoTHYROXINE 100mcg tablet PO SCH (08:00)
== END 2023-06-30 14:48 | disposition left against medical advice (07) | DRG 383 ==
LOC: ER 11:55 → ED HOLD 23:06 → EDBEDREQ 06-28 05:50 → ORTHO 4S 06-28 09:00
PROVIDERS: ADMIT Family Medicine; ATTEND Internal Medicine
PROC: BW211ZZ Computerized Tomography (CT Scan) of Abdomen and Pelvis using Low Osmolar Contrast (ICD-10-PCS; principal; 2023-06-27)
DX: L03.314 Cellulitis of groin (principal); E87.1 Hypo-osmolality and hyponatremia; E03.9 Hypothyroidism, unspecified; E66.01 Morbid (severe) obesity due to excess calories; E11.9 Type 2 diabetes mellitus without complications; Z53.21 Procedure and treatment not carried out due to patient leaving prior to being seen by health care provider; E87.6 Hypokalemia; N43.2 Other hydrocele; L02.214 Cutaneous abscess of groin; K40.90 Unilateral inguinal hernia, without obstruction or gangrene, not specified as recurrent; Z68.41 Body mass index [BMI] 40.0-44.9, adult; Z83.3 Family history of diabetes mellitus; Z79.4 Long term (current) use of insulin; Z79.899 Other long term (current) drug therapy
CPT/HCPCS: 36415; 74177; 76870; 76882; 80053; 80202; 81001; 82948; 83036; 83735; 84145; 85025; 86703; 86704; 86705; 87040; 87070; 87077; 87081; 87186; 87340; 93976; 99285; A4615; A6449; G0378; J1170; J1650; J1815; J2405; J2543; J3370; J3480; J3490; J7030; J7040; Q9967